=== PATIENT | female | born 1980 | race Caucasian/White ===

== ENCOUNTER 2024-07-28 18:25 | Emergency (ER) | payer SELFPAY ==
[~2024-07-28] VITALS: Ht 154.9 cm; Wt 66.0 kg
[2024-07-28] MEDS: KETOROLAC 30MG/ML VIAL IM ONE (19:08)
[2024-07-28] MEDS: HYDROCODONE/ACETAMINOPHEN 10/325MG TABLET PO ONE (19:08)
[2024-07-28] MEDS: ONDANSETRON HCL 4MG/2ML INJ IV ONE (19:46)
[2024-07-28 20:23] VITALS: O2SAT 94
[2024-07-28 22:10] VITALS: TEMP 36.8
[2024-07-28] MEDS: PROPOFOL 200MG/20ML VIAL IV PRN (22:48)
[2024-07-28] MEDS: MORPHINE SULFATE 4 MG/ML INJ (FOR IV/IM USE) IV NR (23:34)
[2024-07-29] MEDS ORDERED: IBUP-2030 MT (00:30)
[2024-07-29] MEDS ORDERED: HYDR-4001 MT (00:30)
[2024-07-29 01:02] VITALS: BP 102/60; PULSE 60; RESP 16; O2SAT 94
== END 2024-07-29 01:15 | disposition home or self-care (01) ==
LOC: ER 18:25
DX: S52.591A Other fractures of lower end of right radius, initial encounter for closed fracture (principal); W01.0XXA Fall on same level from slipping, tripping and stumbling without subsequent striking against object, initial encounter; Y93.89 Activity, other specified; Y92.89 Other specified places as the place of occurrence of the external cause; Y99.8 Other external cause status
CPT/HCPCS: 73110; 93005; 25605; 96372; 96374; 96375; 99152; 99285; J1885; J2405; J2704; J2270; Z7610